=== PATIENT | female | born 1975 | race Hispanic/Latino ===

== ENCOUNTER 2021-04-19 17:05 | Emergency (ER) | payer OTHER ==
[~2021-04-19] VITALS: Ht 167.6 cm; Wt 72.6 kg
[2021-04-19] MEDS ORDERED: DEXAMETHASONE SOD PHOS 10 MG/1 ML VIAL IV STA (17:13)
[2021-04-19] MEDS ORDERED: SODIUM CHLORIDE 0.9% 1000ML 1,000 ML IV STA (17:13)
[2021-04-19] MEDS ORDERED: IBUPROFEN 600 MG TAB PO STA (17:15)
[2021-04-19] MEDS ORDERED: SODIUM CHLORIDE 0.9% 1000ML 1,000 ML ONE (17:21)
[2021-04-19] MEDS ORDERED: ACETAMINOPHEN 325 MG TAB ONE (17:21)
[2021-04-19] MEDS ORDERED: IBUPROFEN 400 MG TAB ONE (17:28)
[2021-04-19] MEDS ORDERED: IBUPROFEN 400 MG TAB PO ONE (17:30)
[2021-04-19 18:15] LABS: BASOPHILS % 0.1 % (0.0-1.0); HEMATOCRIT 34.6 % (34.2-44.1); HEMOGLOBIN 11.2 g/dL (12.0-16.0); LYMPHOCYTES # (AUTO) 1.1 (1.0-3.2); LYMPHOCYTES % 14.4 % (18.0-39.1); MEAN CORPUSCULAR HEMOGLOBIN 26.4 pg (28-32); MEAN CORPUSCULAR HGB CONC 32.4 g/dL (31-35); MEAN CORPUSCULAR VOLUME 81.6 fL (81-99); MONOCYTES # (AUTO) 0.5 (0.2-0.8); MONOCYTES % 6.1 % (4.4-11.3); NEUTROPHILS # (AUTO) 5.8 (2.1-6.9); NEUTROPHILS % 78.6 % (38.7-80.0); PLATELET COUNT 244 x10e3/uL (140-360); RED BLOOD COUNT 4.24 x10e6/uL (3.6-5.1)
[2021-04-19] MEDS ORDERED: AZITHROMYCIN250 MG PO (18:45)
[2021-04-19] MEDS ORDERED: PREDNISONE20 MG PO (18:45)
[2021-04-19] MEDS ORDERED: VENTOLIN HFA18 GM INH (18:45)
[2021-04-19 19:02] LABS: ALBUMIN 3.8 g/dL (3.5-5.0); ANION GAP 19.1 mmol/L (8-16); CREATININE, SERUM 0.77 mg/dL (0.57-1.11); POTASSIUM 3.1 mmol/L (3.5-5.1)
[2021-04-19 19:15] LABS: ALBUMIN/GLOBULIN RATIO 0.9 (0.8-2.0)
[2021-04-19 19:35] VITALS: BP 113/77
== END 2021-04-19 19:40 | disposition home or self-care (01) ==
LOC: ER 17:13
DX: U07.1 COVID-19 (principal); J12.82 Pneumonia due to coronavirus disease 2019; R00.0 Tachycardia, unspecified
CPT/HCPCS: 36415; 71045; 80053; 85025; 99284; J0456; J1100; J7030